=== PATIENT | male | born 1990 | race Caucasian/White ===

== ENCOUNTER 2017-03-15 04:25 | Emergency (ER) | payer BC ==
[~2017-03-15] VITALS: Ht 177.8 cm; Wt 89.1 kg
[2017-03-15 04:29] VITALS: TEMP 36.5; Ht 177.8 cm; Wt 89.1 kg
[2017-03-15] MEDS ORDERED: OXYCODONE IR HOME PACK PO ONE (04:30)
[2017-03-15] MEDS ORDERED: LIDOCAINE HCL 2% VISC SOLN 20 ML UDC PO STA (04:37)
[2017-03-15] MEDS ORDERED: SODIUM CHLORIDE 0.9% 1000ML 1,000 ML IV STA ×2 (04:37)
[2017-03-15] MEDS ORDERED: ALUMINUM/MAGNESIUM SUSP 30 ML UDC PO STA (04:37)
[2017-03-15] MEDS ORDERED: LORAZEPAM 2 MG/ML 1 ML VIAL IV STA (04:37)
[2017-03-15 05:27] LABS: BASO % 0.3 %; BASO ABS # 0.02 K/uL (0-0.2); COMPLETE YES; EOS % 1.7 %; HEMATOCRIT 45.3 % (42-52); IG% 0.1 %; LYMPH % 34.2 %; LYMPH ABS # 2.66 K/uL (1.2-3.4); MEAN CELL VOLUME 86.1 fL (80-100); MEAN PLATELET VOLUME 10.7 fL (7.4-10.4); MONO % 7.7 %; PLATELET COUNT 267 K/uL (130-400); RED BLOOD COUNT 5.26 M/uL (4.7-6.1); WHITE BLOOD COUNT 7.78 K/uL (4.8-10.8)
[2017-03-15 05:28] LABS: URINE APPEARANCE CLEAR (CLEAR); URINE BILIRUBIN NEG (NEG); URINE COLOR YELLOW; URINE NITRITE NEG (NEG); UROBILINOGEN NEG (NEG); ZZUR CULT IF INDIC CLEAN CATCH NO
[2017-03-15 05:42] LABS: MANUAL MICROSCOPIC REQUIRED? NO; REVIEW REQ? NO
[2017-03-15] MEDS ORDERED: CLON1TAB3 PO (05:42)
[2017-03-15] MEDS ORDERED: PROP1TAB PO (05:43)
[2017-03-15] MEDS ORDERED: PRT/20 PO (05:44)
[2017-03-15 05:53] LABS: BUN/CREATININE RATIO 8.3 (10-20); CALCIUM 9.6 mg/dl (8.5-10.1); CREATININE 1.3 mg/dl (0.60-1.40); POTASSIUM 3.8 mmol/L (3.5-5.1)
[2017-03-15] MEDS ORDERED: ONDANSETRON INJ 2 MG/ML 2 ML VIAL IV STA (06:13)
[2017-03-15] MEDS ORDERED: MoRPHine SULFATE 4 MG/ML 1 ML CARP\\VIAL IV STA (06:13)
[2017-03-15] MEDS ORDERED: PANTOprazole SOD 40 MG TAB PO STA (06:40)
[2017-03-15] MEDS ORDERED: PANT40TA PO (06:47)
[2017-03-15] MEDS ORDERED: SUCRALFATE 1 GM/10 ML UDC PO STA (06:59)
--- NOTE | 2017-03-15 07:18 | DIAGNOSTIC IMAGING REPORT ---
GALLBLADDER-ABD LIMITED CLINICAL HISTORY: 27 years-old Male presenting with epi pain, ? GB. TECHNIQUE: Real-time grayscale and limited color Doppler ultrasound imaging of the abdomen limited to the right upper quadrant was performed. COMPARISON: None. FINDINGS: Pancreas: Visualized portions of the pancreatic head and body normal. Liver: Mildly hyperechogenic parenchyma, although the right hemidiaphragm remains visible, likely indicating mild steatosis. The liver measures 16 cm in maximal sagittal dimension. No sonographic evidence of hepatic mass. Main portal vein patent with normal directional flow. Biliary: No intrahepatic biliary ductal dilatation. Common bile duct measures up to 4 mm in diameter. Gallbladder: Gallbladder sludge noted. No gallstones, wall thickening, pericholecystic fluid or inflammatory change. Right kidney: Normal in appearance and size, measuring 9.8 cm. No hydronephrosis. Ascites: None. IMPRESSION: 1. Gallbladder sludge. No evidence of cholelithiasis or cholecystitis. 2. Suggestion of hepatic steatosis. Electronically signed by: Surendra Kevin M.D. 03/15/2017 7:17 AM Dictated Date/Time: 03/15/2017 7:16 AM
--- NOTE | 2017-03-15 07:27 | EMERGENCY ROOM VISIT NOTE ---
History First contact with patient: 04:36 Chief Complaint: ABDOMINAL PAIN Stated Complaint: INTENSE UPR STOMACH PAIN,PANIC ATTACK SYMPTOMS Nursing Triage Summary: pt reports waking up and "i thought it was a panic attack but then i had this pain." pt c/o upper abdominal pain that radiates into his chest. pt's SO states pt has had panic attacks before "but never anything like this or that required medication." pt is pale and clammy, hyperventilating. pt has difficulty describing pain. denies urinary symptoms, denies diarrhea. states "if i had anything in my stomach to throw up i would." History of Present Illness The patient is a 27 year old male who presents to the Emergency Room with complaints of epigastric discomfort and feeling anxious for the past hour. Pain currently 5 out of 10. Nothing makes it better or worse. It does not radiate. No history of similar symptoms in the past. Patient suffers from anxiety. Patient has Klonopin and did not work so he came here. Patient also complains of left foot pain after injuring it a few days ago. Patient denies chest pain, dyspnea, fever, chills, back pain, vomiting, diarrhea, urinary symptoms. Review of Systems See HPI for pertinent positives & negatives. A total of 10 systems reviewed and were otherwise negative. Past Medical/Surgical History Panic Attacks Social History Smoking Status: Never Smoker Drug Use: none Marital Status: Housing Status: lives with family Occupation Status: employed Current/Historical Medications Scheduled Clonazepam (Klonopin), 1 MG PO BID Pantoprazole (Protonix), 20 MG PO DAILY Pantoprazole (Protonix), 40 MG PO DAILY Propranolol (Inderal), Unknown Dose PO DAILY Physical Exam Vital Signs Date Time Temp Pulse Resp B/P (MAP) Pulse Ox O2 Delivery O2 Flow Rate FiO2 03/15/17 07:10 66 14 96 03/15/17 07:05 88 14 142/89 99 03/15/17 07:01 142/89 03/15/17 07:00 60 20 100 03/15/17 06:30 53 20 130/86 100 Room Air 03/15/17 05:21 61 28 125/92 100 Room Air 03/15/17 05:20 Room Air 03/15/17 04:29 36.5 61 28 146/104 100 Room Air Physical Exam VITALS: Vitals are noted on the nurse's note and reviewed by myself. Vital signs stable. GENERAL: Pleasant male anxious-appearing, in no acute distress, nondiaphoretic, well-developed well-nourished. SKIN: The skin was without rashes, erythema, edema, or bruising. There is no tenting of the skin. Capillary reflex less than 2 seconds. HEAD: Normocephalic atraumatic. EARS: External auditory canals clear, tympanic membranes pearly calabrese without erythema or effusion bilaterally. EYES: Pupils equal round and reactive to light and accommodation. Conjunctivae without injection, sclerae without icterus. Extraocular movements intact. NOSE: Patent, turbinates without inflammation or discharge. MOUTH: Mucous membranes moist. Pharynx without erythema or exudate. Uvula midline. Airway patent. Tongue does not deviate. NECK: Supple without nuchal rigidity. No lymphadenopathy. No thyromegaly. Cervical spine is nontender. No JVD. HEART: Regular rate and rhythm without murmurs gallops or rubs. LUNGS: Clear to auscultation bilaterally without wheezes, rales or rhonchi. No dullness to percussion. No retractions or accessory muscle use. ABDOMEN: Positive bowel sounds x 4. Normal tympanic percussion. Soft, minimally tender epigastric region, no CVA tenderness, without masses or organomegaly. [place]o sign negative. No guarding or rebound tenderness. MUSCULOSKELETAL: No muscle atrophy, erythema, or edema noted. Left mid soldering machine tender to palpation with no deformity. No fifth metatarsal base tenderness. Left ankle is nontender to palpation. Pedal pulses +2 equal present bilaterally. NEURO: Patient was alert and oriented to person place and time. Normal sensation to light and sharp touch. No focal neurological deficits. Medical Decision & Procedures Laboratory Results 03/15/17 05:12 Red Blood Count 5.26, Mean Corpuscular Volume 86.1, Mean Corpuscular Hemoglobin 31.0, Mean Corpuscular Hemoglobin Concent 36.0, Mean Platelet Volume 10.7, Neutrophils (%) (Auto) 56.0, Lymphocytes (%) (Auto) 34.2, Monocytes (%) (Auto) 7.7, Eosinophils (%) (Auto) 1.7, Basophils (%) (Auto) 0.3, Neutrophils # (Auto) 4.36, Lymphocytes # (Auto) 2.66, Monocytes # (Auto) 0.60, Eosinophils # (Auto) 0.13, Basophils # (Auto) 0.02 03/15/17 05:12 Test 03/15/17 05:12 White Blood Count 7.78 K/uL (4.8-10.8) Red Blood Count 5.26 M/uL (4.7-6.1) Hemoglobin 16.3 g/dL (14.0-18.0) Hematocrit 45.3 % (42-52) Mean Corpuscular Volume 86.1 fL (80-100) Mean Corpuscular Hemoglobin 31.0 pg (25-34) Mean Corpuscular Hemoglobin Concent 36.0 g/dl (32-36) Platelet Count 267 K/uL (130-400) Mean Platelet Volume 10.7 fL (7.4-10.4) Neutrophils (%) (Auto) 56.0 % Lymphocytes (%) (Auto) 34.2 % Monocytes (%) (Auto) 7.7 % Eosinophils (%) (Auto) 1.7 % Basophils (%) (Auto) 0.3 % Neutrophils # (Auto) 4.36 K/uL (1.4-6.5) Lymphocytes # (Auto) 2.66 K/uL (1.2-3.4) Monocytes # (Auto) 0.60 K/uL (0.11-0.59) Eosinophils # (Auto) 0.13 K/uL (0-0.5) Basophils # (Auto) 0.02 K/uL (0-0.2) RDW Standard Deviation 40.3 fL (36.4-46.3) RDW Coefficient of Variation 12.7 % (11.5-14.5) Immature Granulocyte % (Auto) 0.1 % Immature Granulocyte # (Auto) 0.01 K/uL (0.00-0.02) Urine Color YELLOW Urine Appearance CLEAR (CLEAR) Urine pH 5.0 (4.5-7.5) Urine Specific [place] 1.020 (1.000-1.030) Urine Protein NEG (NEG) Urine Glucose (UA) NEG (NEG) Urine Ketones NEG (NEG) Urine Occult Blood NEG (NEG) Urine Nitrite NEG (NEG) Urine Bilirubin NEG (NEG) Urine Urobilinogen NEG (NEG) Urine Leukocyte Esterase NEG (NEG) Anion Gap 9.0 mmol/L (3-11) Est Creatinine Clear Calc Drug Dose 95.9 ml/min Estimated GFR () 86.7 Estimated GFR (Non- 74.8 BUN/Creatinine Ratio 8.3 (10-20) Calcium Level 9.6 mg/dl (8.5-10.1) Total Bilirubin 0.5 mg/dl (0.2-1) Direct Bilirubin 0.1 mg/dl (0-0.2) Aspartate Amino Transf (AST/SGOT) 11 U/L (15-37) Alanine Aminotransferase (ALT/SGPT) 40 U/L (12-78) Alkaline Phosphatase 76 U/L (45-117) Total Protein 8.1 gm/dl (6.4-8.2) Albumin 4.2 gm/dl (3.4-5.0) Lipase 194 U/L (73-393) Medications Administered Medications (Trade) Dose Ordered Sig/Vj Route Start Time Stop Time Status Last Admin Dose Admin Lidocaine HCl (Viscous Lidocaine 2% Soln) 10 ml NOW STAT PO 03/15/17 04:37 03/15/17 04:47 DC 03/15/17 05:34 10 ML Al Hydroxide/Mg Hydroxide (Maalox Susp) 30 ml NOW STAT PO 03/15/17 04:37 03/15/17 04:47 DC 03/15/17 05:34 30 ML Lorazepam (Ativan Inj) 1 mg NOW STAT IV 03/15/17 04:37 03/15/17 04:47 DC 03/15/17 05:14 1 MG Sodium Chloride 1,000 ml @ 999 mls/hr Q1H1M STAT IV 03/15/17 04:37 03/15/17 05:37 DC 03/15/17 05:14 999 MLS/HR Sodium Chloride 1,000 ml @ 125 mls/hr Q8H STAT IV 03/15/17 04:37 03/15/17 12:36 03/15/17 07:08 125 MLS/HR Morphine Sulfate (MoRPHine SULFATE INJ) 4 mg NOW STAT IV 03/15/17 06:13 03/15/17 06:15 DC 03/15/17 06:24 4 MG Ondansetron HCl (Zofran Inj) 4 mg NOW STAT IV 03/15/17 06:13 03/15/17 06:15 DC 03/15/17 06:23 4 MG Pantoprazole Sodium (Protonix Tab) 40 mg NOW STAT PO 03/15/17 06:40 03/15/17 06:41 DC 03/15/17 07:08 40 MG Sucralfate (Carafate Susp) 1 gm NOW STAT PO 03/15/17 06:59 03/15/17 07:00 DC 03/15/17 07:08 1 GM ED Course Prior records/ancillary studies reviewed. Triage Nursing notes reviewed. Additional history obtained from family. The patient's history was concerning for abdominal pain. Differential diagnosis: Etiologies such as appendicitis, diverticulitis, PUD, biliary pathology, UTI, pancreatitis, obstruction, mesenteric ischemia, aortic pathology, infections, inflammatory bowel disease, renal colic, as well as others were entertained. Physical examination findings: As above. ER treatment provided: GI cocktail On reassessment the patient felt better. Diagnostics interpreted by me: The labs revealed no leukocytosis. No worrisome electrolyte abnormality normal lipase Imaging studies: X-ray with no acute fracture, dislocation or effusion per my interpretation GALLBLADDER-ABD LIMITED CLINICAL HISTORY: 27 years-old Male presenting with epi pain, ? GB. TECHNIQUE: Real-time grayscale and limited color Doppler ultrasound imaging of the abdomen limited to the right upper quadrant was performed. COMPARISON: None. FINDINGS: Pancreas: Visualized portions of the pancreatic head and body normal. Liver: Mildly hyperechogenic parenchyma, although the right hemidiaphragm remains visible, likely indicating mild steatosis. The liver measures 16 cm in maximal sagittal dimension. No sonographic evidence of hepatic mass. Main portal vein patent with normal directional flow. Biliary: No intrahepatic biliary ductal dilatation. Common bile duct measures up to 4 mm in diameter. Gallbladder: Gallbladder sludge noted. No gallstones, wall thickening, pericholecystic fluid or inflammatory change. Right kidney: Normal in appearance and size, measuring 9.8 cm. No hydronephrosis. Ascites: None. IMPRESSION: 1. Gallbladder sludge. No evidence of cholelithiasis or cholecystitis. 2. Suggestion of hepatic steatosis. Electronically signed by: Surendra Kevin M.D. Exam and history seem consistent with epigastric discomfort most likely from gastritis. Patient felt much better after being medicated as above. He had injured his foot a few days ago and was complaining of foot pain and x-ray was ordered and this was negative also. He injured a few days ago. He was advised to take medications as started in the follow-up family care in a few days or here in the ER sooner for abdominal pain, fevers, vomiting, worsening signs or symptoms or as needed. Patient did not have acute abdomen on exam. He is well- appearing. He is tolerating fluids. By the evaluation outlined above emergent etiologies such as appendicitis, diverticulitis, PUD, biliary pathology, UTI, pancreatitis, obstruction, mesenteric ischemia, aortic pathology, infections, inflammatory bowel disease, renal colic, as well as others were deemed relatively unlikely. The pt informed about the findings as listed above. All questions were answered and pleased with the treatment. Return instructions were outlined and the patient was discharged in stable condition. Outpatient prescription management: Protonix Referral: The patient was referred back to their primary care physician for follow-up in 2 to 3 days for a recheck of the current condition. Case reviewed by attending Medical Decision as above Medication Reconcilliation Current Medication List: was personally reviewed by sc Blood Pressure Screening Patient's blood pressure: Normal blood pressure Impression Primary Impression: Epigastric abdominal pain Additional Impression: Left foot pain Departure Information Dispostion Home / Self-Care Condition GOOD Prescriptions Pantoprazole (Protonix) 40 Mg Tab 40 MG PO DAILY for 14 Days, #14 TAB Prov: Karla Condon ., BRIDGETT 03/15/17 Referrals Dagmar Correa D.ODavid (PCP) Patient Instructions My [facility] Additional Instructions Protonix 40 m tablet daily for next 2 weeks. Take this on an empty stomach. Try Maalox or Zantac for breakthrough symptoms for reflux. Avoid large meals. Avoid acidic foods. Rest and drink plenty of fluids as tolerated. Continue current medications. Avoid strenuous activities and anything that worsens your pain. Resume normal activities once your symptoms resolve. Return to the ER immediately for worsening or persistent chest pain, abdominal pain, black or blood in your stools, vomiting, fevers, chest pains, difficulty breathing, worsening of your condition, or as needed. Follow up with your primary physician in 2-3 days for a recheck of your current condition. Problem Qualifiers
--- NOTE | 2017-03-15 07:36 | DIAGNOSTIC IMAGING REPORT ---
LEFT FOOT MIN 3 VIEWS ROUTINE CLINICAL HISTORY: 27 years-old Male presenting with fall, left pain. TECHNIQUE: Frontal, oblique, and lateral views of the left foot were obtained. COMPARISON: None. FINDINGS: No acute fracture or subluxation. No radiopaque foreign body. Regional soft tissues within normal limits. IMPRESSION: No acute osseous injury of the left foot. Electronically signed by: Surendra Kevin M.D. 03/15/2017 7:34 AM Dictated Date/Time: 03/15/2017 7:34 AM
[2017-03-15 07:40] VITALS: BP 134/76; PULSE 66; O2SAT 96
[2017-03-22] MEDS ORDERED: OXYC-57 PO (09:42)
== END 2017-03-15 07:39 | disposition home or self-care (01) ==
LOC: C.EDB 04:27 → C.EDA 07:39
DX: R10.13 Epigastric pain (principal); M79.672 Pain in left foot; F41.0 Panic disorder [episodic paroxysmal anxiety]; Z79.899 Other long term (current) drug therapy

== ENCOUNTER 2017-03-17 05:54 | Emergency (ER) | payer BC ==
[~2017-03-17] VITALS: Ht 177.8 cm; Wt 87.4 kg
[~2017-03-17 05:54] MED LIST: CLON1TAB3 PO; PANT40TA PO; PROP1TAB PO; PRT/20 PO
[2017-03-17 06:03] VITALS: TEMP 36.3; Ht 177.8 cm; Wt 87.4 kg
[2017-03-17] MEDS ORDERED: PROP80CA PO (06:24)
[2017-03-17] MEDS ORDERED: CALC500C3 PO (06:24)
[2017-03-17] MEDS ORDERED: PANT40TA PO (06:24)
[2017-03-17 06:37] LABS: BASO % 0.3 %; BASO ABS # 0.02 K/uL (0-0.2); COMPLETE YES; EOS % 1.5 %; HEMATOCRIT 47.2 % (42-52); IG% 0.3 %; LYMPH % 36.8 %; LYMPH ABS # 2.53 K/uL (1.2-3.4); MEAN CELL VOLUME 87.4 fL (80-100); MEAN CORPUSCULAR HEMOGLOBIN 30.4 pg (25-34); MEAN CORPUSCULAR HGB CONC 34.7 g/dl (32-36); MEAN PLATELET VOLUME 10.8 fL (7.4-10.4); MONO % 6.7 %; NEUT % 54.4 %; PLATELET COUNT 260 K/uL (130-400); WHITE BLOOD COUNT 6.87 K/uL (4.8-10.8)
[2017-03-17] MEDS ORDERED: DICYCLOMINE HCL 20 MG TAB PO ONE (06:45)
[2017-03-17] MEDS ORDERED: DICYCLOMINE HCL 10 MG CAP ONE (06:49)
--- NOTE | 2017-03-17 06:50 | EMERGENCY ROOM VISIT NOTE ---
History Report prepared by [place]: Minerva Allison Under the Supervision of: Dr. Dominick Sandoval M.D. First contact with patient: 06:33 Chief Complaint: ABDOMINAL PAIN Stated Complaint: INTENSE ABDOMINAL PAIN,GASTRITIS Nursing Triage Summary: Diffuse abdominal pain, particularly on right side, "piercing" pain. Here two days ago, possible gastroenteritis. No diarrhea or vomiting. Pain severe at this time. Some lightheadedness and dizziness. History of Present Illness The patient is a 27 year old male who presents to the Emergency Room with complaints of intermittent abdominal pain that began several days ago. He currently rates his discomfort as a 9/10 in severity. The patient states that he was evaluated in the emergency department two days ago for similar pain. He notes that he was diagnosed with gastritis and started on Protonix. The patient states that he has been taking the medication. He states that the pain has been intermittent until 0430 this morning, when the pain became persistent. The patient reports normal bowel movements, denying any diarrhea or hematochezia. He denies any nausea or vomiting. The patient does report some lightheadedness and dizziness. He reports normal urination. Source of History: patient Onset: several days ago Position: abdomen Symptom Intensity: 9/10 Timing: intermittent Associated Symptoms: No nausea, No vomiting, No hematochezia, No diarrhea, No urinary symptoms Note: Associated Symptoms: lightheadedness and dizziness Review of Systems All systems have been listed, reviewed, and are negative other than those previously mentioned. Please see Additional Medical History Sheet. Past Medical & Surgical Surgical Problems: (1) Hx of tonsillectomy Family History Cancer Social History Smoking Status: Never Smoker Smokeless Tobacco Use: No Alcohol Use: occasionally Drug Use: none Marital Status: Housing Status: lives with family Occupation Status: employed Current/Historical Medications Scheduled Clonazepam (Klonopin), 1 MG PO BID Pantoprazole (Protonix), 40 MG PO DAILY Propranolol Hcl (Propranolol Hcl Er), 80 MG PO DAILY Scheduled PRN Calcium Carbonate (Tums), 1-2 TABS PO DIRECTED PRN for Indigestion Oxycodone/Acetaminophen 5MG/325MG (Percocet 5MG/325MG), 1-2 TABLETS PO Q4H PRN for Pain Allergies Coded Allergies: No Known Allergies (Unverified , 03/17/17) Physical Exam Vital Signs Date Time Temp Pulse Resp B/P (MAP) Pulse Ox O2 Delivery O2 Flow Rate FiO2 03/17/17 10:58 70 16 128/74 98 03/17/17 10:23 55 18 138/91 99 Room Air 03/17/17 08:28 66 16 129/91 98 Room Air 03/17/17 07:24 70 16 131/84 96 Room Air 03/17/17 06:03 36.3 54 20 147/102 Physical Exam GENERAL: Patient awake, alert, oriented x 3. Patient follows commands. Patient appears to be in marked distress. Patient is adequately hydrated and well-nourished. SKIN: Skin is pale and clammy. No erythema, cyanosis or rash HEENT: Normal head, pupils equal, reactive to light and accommodation. Oral cavity and posterior pharynx appear normal. Neck: Without adenopathy, no neck vein distention. LUNGS: Clear to auscultation. No wheezes, no rales, no rhonchi. HEART: No murmurs. No gallops. No rubs ABDOMEN: Generalized mid-epigastric tenderness, no rebound or guarding, no organomegaly. EXTREMITIES: No signs of trauma or infection NEUROLOGIC: Cranial nerves II-XII within normal limits. No gross motor sensory function deficits. Medical Decision & Procedures ER Provider Diagnostic Interpretation: CT results are interpretations by the radiologist and per my review. CT OF THE ABDOMEN AND PELVIS WITH CONTRAST CLINICAL HISTORY: Severe epigastric pain. COMPARISON STUDY: Right upper quadrant ultrasound March 15, 2017. TECHNIQUE: Following IV administration of 93 mL of Optiray-320, axial images of the abdomen and pelvis were obtained from the lung bases to the proximal femurs. Images were reviewed in the axial, sagittal, and coronal planes. IV contrast was administered without complication. A dose lowering technique was utilized adhering to the principles of ALARA. Oral contrast was administered. CT DOSE: 846.57 mGycm FINDINGS: Lung bases are clear. The liver, spleen, adrenal glands, kidneys and pancreas are normal. There is no biliary or pancreatic ductal dilatation. The gallbladder is mildly distended. There is mild pericholecystic infiltration. No peripancreatic infiltration is present. No pneumatosis, free air or portal venous gas is present. Caliber and wall thickness of small and large bowel are normal. The appendix is normal. No suspicious skeletal lesions are identified. IMPRESSION: Mild gallbladder distention and mild pericholecystic infiltration which raises the possibility of acute cholecystitis. A hepatobiliary scan could be obtained as indicated. Electronically signed by: Forrest Mora M.D. 03/17/2017 9:32 AM Dictated Date/Time: 03/17/2017 9:24 AM Laboratory Results 03/17/17 06:25 Red Blood Count 5.40, Mean Corpuscular Volume 87.4, Mean Corpuscular Hemoglobin 30.4, Mean Corpuscular Hemoglobin Concent 34.7, Mean Platelet Volume 10.8, Neutrophils (%) (Auto) 54.4, Lymphocytes (%) (Auto) 36.8, Monocytes (%) (Auto) 6.7, Eosinophils (%) (Auto) 1.5, Basophils (%) (Auto) 0.3, Neutrophils # (Auto) 3.74, Lymphocytes # (Auto) 2.53, Monocytes # (Auto) 0.46, Eosinophils # (Auto) 0.10, Basophils # (Auto) 0.02 03/17/17 06:25 Test 03/17/17 06:25 03/17/17 06:35 White Blood Count 6.87 K/uL (4.8-10.8) Red Blood Count 5.40 M/uL (4.7-6.1) Hemoglobin 16.4 g/dL (14.0-18.0) Hematocrit 47.2 % (42-52) Mean Corpuscular Volume 87.4 fL (80-100) Mean Corpuscular Hemoglobin 30.4 pg (25-34) Mean Corpuscular Hemoglobin Concent 34.7 g/dl (32-36) Platelet Count 260 K/uL (130-400) Mean Platelet Volume 10.8 fL (7.4-10.4) Neutrophils (%) (Auto) 54.4 % Lymphocytes (%) (Auto) 36.8 % Monocytes (%) (Auto) 6.7 % Eosinophils (%) (Auto) 1.5 % Basophils (%) (Auto) 0.3 % Neutrophils # (Auto) 3.74 K/uL (1.4-6.5) Lymphocytes # (Auto) 2.53 K/uL (1.2-3.4) Monocytes # (Auto) 0.46 K/uL (0.11-0.59) Eosinophils # (Auto) 0.10 K/uL (0-0.5) Basophils # (Auto) 0.02 K/uL (0-0.2) RDW Standard Deviation 40.8 fL (36.4-46.3) RDW Coefficient of Variation 12.7 % (11.5-14.5) Immature Granulocyte % (Auto) 0.3 % Immature Granulocyte # (Auto) 0.02 K/uL (0.00-0.02) Anion Gap 9.0 mmol/L (3-11) Est Creatinine Clear Calc Drug Dose 104.2 ml/min Estimated GFR () 106.1 Estimated GFR (Non- 91.5 BUN/Creatinine Ratio 13.8 (10-20) Calcium Level 10.2 mg/dl (8.5-10.1) Total Bilirubin 0.5 mg/dl (0.2-1) Aspartate Amino Transf (AST/SGOT) 27 U/L (15-37) Alanine Aminotransferase (ALT/SGPT) 45 U/L (12-78) Alkaline Phosphatase 78 U/L (45-117) Total Protein 8.4 gm/dl (6.4-8.2) Albumin 4.2 gm/dl (3.4-5.0) Globulin 4.2 gm/dl (2.5-4.0) Albumin/Globulin Ratio 1.0 (0.9-2) Lipase 181 U/L (73-393) Urine Color DK YELLOW Urine Appearance CLEAR (CLEAR) Urine pH 6.5 (4.5-7.5) Urine Specific [place] 1.028 (1.000-1.030) Urine Protein NEG (NEG) Urine Glucose (UA) NEG (NEG) Urine Ketones 1+ (NEG) Urine Occult Blood NEG (NEG) Urine Nitrite NEG (NEG) Urine Bilirubin NEG (NEG) Urine Urobilinogen NEG (NEG) Urine Leukocyte Esterase TRACE (NEG) Urine WBC (Auto) 1-5 /hpf (0-5) Urine RBC (Auto) 0-4 /hpf (0-4) Urine Hyaline Casts (Auto) 1-5 /lpf (0-5) Urine Epithelial Cells (Auto) 5-10 /lpf (0-5) Urine Bacteria (Auto) NEG (NEG) Laboratory results as stated above per my review. Medications Administered Medications (Trade) Dose Ordered Sig/Vj Route Start Time Stop Time Status Last Admin Dose Admin Dicyclomine HCl (Bentyl Cap) 20 mg STK-MED ONCE .ROUTE 03/17/17 06:49 03/17/17 06:50 DC 03/17/17 06:52 20 MG Morphine Sulfate (MoRPHine SULFATE INJ) 6 mg Q1H PRN IV 03/17/17 07:30 03/17/17 11:15 DC 03/17/17 08:27 6 MG Ondansetron HCl (Zofran Inj) 4 mg Q1HWA PRN IV 03/17/17 07:30 03/17/17 11:15 DC 03/17/17 07:21 4 MG ED Course 0634: Past medical records reviewed. The patient was evaluated in room B9. A complete history and physical examination was performed. 0649: Ordered Bentyl Cap 20 mg .route. 0730: Ordered Zofran Inj 4 mg iV, Morphine Sulfate 6 mg IV. 0904: I reevaluated the patient and he feels slightly better. 1011: I reevaluated the patient and he is feeling better. I explained the test results with him and the option of a hepatobiliary scan. He verbalized complete understanding and agreement. He will be set up for a hepatobiliary scan. The patient will be discharged home shortly. 1025: I discussed the patient's case with the Dr. Correa, Family Medicine. She is going to order the hepatobiliary scan and the patient will have the scan tomorrow at 1230. Medical Decision Nurses notes reviewed. Medical history sheet reviewed. Differential diagnosis includes but is not limited to: Gastritis, peptic/gastric ulcer disease, pancreatitis, cholecystis, cholelithiasis, ulcerative colitis, Crohns disease, mesenteric infarction. Labs and imaging were performed. Please see above. CT is concerning for possible cholecystitis. White count is not elevated. Liver enzymes are within normal range. I believe the patient should have a HIDA scan which could not be completed today. This will be done as an outpatient. Patient did get relief while here. He is also to follow-up with his family physician. [place] Drug Monitoring [place] Search Results: patient reviewed within database, see additional documentation Drug Monitoring Findings: Receives Clonazepam, but no other narcotic prescriptions Medication Reconcilliation Current Medication List: was personally reviewed by me Blood Pressure Screening Patient's blood pressure: Elevated blood pressure Blood pressure disposition: Elevated BP felt to be situational, Did not require urgent referral Consults Time Called: 1000 Consulting Physician: Dr. Correa Returned Call: [phone] I discussed the patient's case with the Dr. Correa, Family Medicine. She is going to order the hepatobiliary scan and the patient will have the scan tomorrow at 1230. Impression Primary Impression: Right upper quadrant abdominal pain Scribe Attestation The scribe's documentation has been prepared under my direction and personally reviewed by me in its entirety. I confirm that the note above accurately reflects all work, treatment, procedures, and medical decision making performed by me. Departure Information Dispostion Home / Self-Care Prescriptions Oxycodone/Acetaminophen 5MG/325MG (PERCOCET 5MG/325MG) Tab 1-2 TABLETS PO Q4H Y for Pain, #20 TAB Prov: Dominick Sandoval M.D. 03/17/17 Referrals Dagmar Correa D.O. (PCP) Forms HOME CARE DOCUMENTATION FORM, IMPORTANT VISIT INFORMATION Patient Instructions ED Diet Low Fat, [facility] [place] [employer] Additional Instructions 1-2 Percocet every 4 hours as needed for moderate to severe pain. HIDA scan as scheduled tomorrow. Call Dr. Howard for exact time. Nothing by mouth and no pain medications for at least 4 hours prior to the study. Avoid fatty or fried foods.
[2017-03-17 07:02] LABS: CREATININE 1.1 mg/dl (0.60-1.40)
[2017-03-17 07:06] LABS: POTASSIUM 4.1 mmol/L (3.5-5.1)
[2017-03-17 07:08] LABS: BUN/CREATININE RATIO 13.8 (10-20); CALCIUM 10.2 mg/dl (8.5-10.1)
[2017-03-17 07:08] LABS: URINE APPEARANCE CLEAR (CLEAR); URINE BILIRUBIN NEG (NEG); URINE COLOR DK YELLOW; URINE NITRITE NEG (NEG); URINE PH 6.5 (4.5-7.5); URINE SPECIFIC GRAVITY 1.028 (1.000-1.030); UROBILINOGEN NEG (NEG); ZZUR CULT IF INDIC CLEAN CATCH NO
[2017-03-17 07:15] LABS: MANUAL MICROSCOPIC REQUIRED? NO; REVIEW REQ? NO
[2017-03-17] MEDS: MoRPHine SULFATE 10 MG/ML CARP/VIAL IV PRN ×2 (07:22→08:27)
[2017-03-17] MEDS ORDERED: ONDANSETRON INJ 2 MG/ML 2 ML VIAL IV PRN (07:30)
[2017-03-17] MEDS ORDERED: OPTIRAY 320 IV PRN (09:30)
--- NOTE | 2017-03-17 09:33 | DIAGNOSTIC IMAGING REPORT ---
CT OF THE ABDOMEN AND PELVIS WITH CONTRAST CLINICAL HISTORY: Severe epigastric pain. COMPARISON STUDY: Right upper quadrant ultrasound March 15, 2017. TECHNIQUE: Following IV administration of 93 mL of Optiray-320, axial images of the abdomen and pelvis were obtained from the lung bases to the proximal femurs. Images were reviewed in the axial, sagittal, and coronal planes. IV contrast was administered without complication. A dose lowering technique was utilized adhering to the principles of ALARA. Oral contrast was administered. CT DOSE: 846.57 mGycm FINDINGS: Lung bases are clear. The liver, spleen, adrenal glands, kidneys and pancreas are normal. There is no biliary or pancreatic ductal dilatation. The gallbladder is mildly distended. There is mild pericholecystic infiltration. No peripancreatic infiltration is present. No pneumatosis, free air or portal venous gas is present. Caliber and wall thickness of small and large bowel are normal. The appendix is normal. No suspicious skeletal lesions are identified. IMPRESSION: Mild gallbladder distention and mild pericholecystic infiltration which raises the possibility of acute cholecystitis. A hepatobiliary scan could be obtained as indicated. Electronically signed by: Forrest Mora M.D. 03/17/2017 9:32 AM Dictated Date/Time: 03/17/2017 9:24 AM
[2017-03-17] MEDS ORDERED: OXYC-57 PO (10:38)
[2017-03-17 10:58] VITALS: BP 128/74; PULSE 70; O2SAT 98
[2017-03-22] MEDS ORDERED: OXYC-57 PO (09:42)
== END 2017-03-17 10:59 | disposition home or self-care (01) ==
LOC: C.EDB 05:56
DX: R10.11 Right upper quadrant pain (principal); Z80.9 Family history of malignant neoplasm, unspecified; Z79.899 Other long term (current) drug therapy

== ENCOUNTER → 2017-03-18 | Outpatient (CLI) | payer BC ==
[~2017-03-18] MED LIST changes: +CALC500C3 PO; +MoRPHine SULFATE 2 MG/ML CARP ONE; +OXYC-57 PO; -PROP1TAB PO; +PROP80CA PO; -PRT/20 PO; +SINCALIDE INJ 1.7 MCG in SODIUM CHLORIDE 0.9% 100ML 100 ML IV ONE
--- NOTE | 2017-03-18 14:46 | DIAGNOSTIC IMAGING REPORT ---
NUCLEAR HEPATOBILIARY SCAN CLINICAL HISTORY: Right upper quadrant abdominal pain. COMPARISON STUDY: Abdominal CT dated 03/17/2017 and abdominal ultrasound dated 03/15/2017. TECHNIQUE: Dynamic images of the liver and anterior abdomen were obtained every 5 minutes for a total of 60 minutes following the IV administration of 5 mCi of technetium 99m Choletec. The gallbladder was not visualized by 60 minutes, so 2 mg of IV morphine was administered and additional imaging performed every 5 minutes for an additional 30 minutes. FINDINGS: The hepatobiliary scan shows prompt and homogeneous hepatic uptake. There is visualized activity within the intra and extrahepatic biliary tree at 10 minutes. There is normal biliary to bowel transit, with small bowel visualized by 10 minutes. There was nonvisualization of the gallbladder at 60 minutes. The gallbladder was also not visualized 30 minutes following morphine administration. IMPRESSION: Scintigraphic findings are consistent with acute cholecystitis. Surgical consultation is advised. Electronically signed by: Khris Michael M.D. 03/18/2017 2:45 PM Dictated Date/Time: 03/18/2017 2:41 PM
== END | disposition home or self-care (01) ==
LOC: C.NUCL 12:07
PROVIDERS: ATTEND Family Medicine
DX: R10.11 Right upper quadrant pain (principal)

== ENCOUNTER 2017-03-20 09:06 | Inpatient (IN) | payer BC ==
[~2017-03-20] VITALS: Ht 177.8 cm; Wt 84.0 kg
[~2017-03-20 09:06] MED LIST changes: -MoRPHine SULFATE 2 MG/ML CARP ONE; -SINCALIDE INJ 1.7 MCG in SODIUM CHLORIDE 0.9% 100ML 100 ML IV ONE
[2017-03-20 10:41] VITALS: BP 129/94; PULSE 90; TEMP 36.7; O2SAT 99
[2017-03-20 10:52] VITALS: Ht 177.8 cm; Wt 84.0 kg
[2017-03-20] MEDS ORDERED: ACETAMINOPHEN 325 MG TAB PO PRN (11:00)
[2017-03-20 11:39] LABS: BASO % 0.4 %; BASO ABS # 0.03 K/uL (0-0.2); EOS % 2.4 %; HEMATOCRIT 49.9 % (42-52); IG% 0.4 %; LYMPH % 21.1 %; LYMPH ABS # 1.52 K/uL (1.2-3.4); MEAN CELL VOLUME 88.6 fL (80-100); MEAN CORPUSCULAR HEMOGLOBIN 29.8 pg (25-34); MEAN PLATELET VOLUME 10.8 fL (7.4-10.4); MONO % 7.1 %; NEUT % 68.6 %; PLATELET COUNT 272 K/uL (130-400); RED BLOOD COUNT 5.63 M/uL (4.7-6.1); WHITE BLOOD COUNT 7.21 K/uL (4.8-10.8)
[2017-03-20 11:53] LABS: COMPLETE YES; MEAN CORPUSCULAR HGB CONC 33.7 g/dl (32-36)
[2017-03-20 12:08] LABS: BUN/CREATININE RATIO 12.4 (10-20); CALCIUM 10.2 mg/dl (8.5-10.1); CREATININE 1.1 mg/dl (0.60-1.40); POTASSIUM 4.3 mmol/L (3.5-5.1)
[2017-03-20 12:10] LABS: ALB/GLOB RATIO 0.8 (0.9-2)
[2017-03-20] MEDS: LACTATED RINGER'S 1000ML 1,000 ML IV SCH ×2 (12:17→19:05)
[2017-03-20] MEDS: OXYCODONE/ACETAMINOPHEN 5-325 TAB PO PRN ×2 (12:21→19:06)
[2017-03-20] MEDS: CEFOXITIN IV 2,000 MG in DEXTROSE 5% 50ML 50 ML IV SCH ×2 (13:23→17:38)
[2017-03-20] MEDS: ONDANSETRON INJ 2 MG/ML 2 ML VIAL IV PRN ×2 (13:28→20:47)
[2017-03-20] MEDS: FAMOTIDINE IV INJ 20 MG in DEXTROSE 5% 100ML 100 ML IV SCH (14:11)
[2017-03-20 15:34] VITALS: BP 113/76; PULSE 66; TEMP 36.5; O2SAT 94
[2017-03-20 23:18] VITALS: BP 109/69; PULSE 66; TEMP 36.5; O2SAT 94
[2017-03-21] VITALS (8 sets, daily range): BP systolic 107–128; BP diastolic 65–78; PULSE 62–103; TEMP 36.3–36.8; O2SAT 93–98
[2017-03-21] MEDS: CEFOXITIN IV 2,000 MG in DEXTROSE 5% 50ML 50 ML IV SCH ×4 (00:48→18:33)
[2017-03-21] MEDS: MoRPHine SULFATE 2 MG/ML CARP IV PRN ×2 (01:47→10:19)
[2017-03-21] MEDS: FAMOTIDINE IV INJ 20 MG in DEXTROSE 5% 100ML 100 ML IV SCH ×2 (01:47→13:40)
[2017-03-21] MEDS: ONDANSETRON INJ 2 MG/ML 2 ML VIAL IV PRN ×3 (03:09→16:18)
[2017-03-21] MEDS: MoRPHine SULFATE 4 MG/ML 1 ML CARP\\VIAL IV PRN ×2 (03:09→12:20)
[2017-03-21] MEDS: LACTATED RINGER'S 1000ML 1,000 ML IV SCH ×3 (03:17→18:34)
[2017-03-21] MEDS ORDERED: CEFAZOLIN 2000 MG/60 ML D5W IV SCH (06:00)
[2017-03-21] MEDS ORDERED: CEFAZOLIN IV 2,000 MG in DEXTROSE 5% 50ML 50 ML IV SCH (06:00)
[2017-03-21] MEDS ORDERED: BUPIVACAINE/EPINEPHRINE 0.5% MPF 1:200,000 30 ML VIAL ONE (06:58)
[2017-03-21] MEDS ORDERED: DEXAMETHASONE SOD INJ 4 MG/ML VIAL ONE (07:07)
[2017-03-21] MEDS ORDERED: PROPOFOL IV EMULSION 10 MG/ML 20 ML VIAL IV ONE (07:07)
[2017-03-21] MEDS ORDERED: ONDANSETRON INJ 2 MG/ML 2 ML VIAL ONE (07:07)
[2017-03-21] MEDS ORDERED: ROCURONIUM BROMIDE 10 MG/ML 5 ML VIAL IV ONE (07:07)
[2017-03-21] MEDS ORDERED: GLYCOPYRROLATE INJ 0.2 MG/ML VIAL ONE (07:07)
[2017-03-21] MEDS ORDERED: NEOSTIGMINE METHYLSULFATE 5 MG/5 ML SYR ONE (07:07)
[2017-03-21] MEDS ORDERED: LIDOCAINE HCL 2% 2 ML VIAL (20MG/ML) ONE (07:07)
[2017-03-21] MEDS ORDERED: FENTANYL CITRATE INJ 50 MCG/1 ML 2 ML VIAL ONE ×3 (07:08→08:25)
[2017-03-21] MEDS ORDERED: MIDAZOLAM HCL 1 MG/ML 2ML VIAL ONE (07:08)
--- NOTE | 2017-03-21 07:10 | Surgery Progress Note ---
Surgery Progress Note Date of Service Mar 21, 2017. Subjective Post OP Day: HD 2 + feeling well (better), + flatus, + pain controlled, + diet (NPO), No nausea, No vomiting Objective Vital Signs: Date Time Temp Pulse Resp B/P (MAP) Pulse Ox O2 Delivery O2 Flow Rate FiO2 03/21/17 06:43 36.5 67 18 119/72 (88) 97 Room Air 03/21/17 00:30 Room Air 03/20/17 23:18 36.5 66 18 109/69 (82) 94 Room Air 03/20/17 16:00 Room Air 03/20/17 15:34 36.5 66 16 113/76 (88) 94 Room Air 03/20/17 12:00 Room Air 03/20/17 10:52 Room Air 03/20/17 10:41 36.7 90 16 129/94 (106) 99 Room Air General Appearance: WD/WN, no apparent distress Head: normocephalic, atraumatic Neck: supple, trachea midline Respiratory/Chest: chest non-tender, lungs clear Cardiovascular: regular rate, rhythm, no gallop, no murmur Abdomen: normal bowel sounds, non distended, soft, + tenderness (RUQ) Extremities: non-tender, no pedal edema Laboratory Results: Results Past 24 Hours Test 03/20/17 11:30 Range/Units White Blood Count 7.21 4.8-10.8 K/uL Red Blood Count 5.63 4.7-6.1 M/uL Hemoglobin 16.8 14.0-18.0 g/dL Hematocrit 49.9 42-52 % Mean Corpuscular Volume 88.6 80-100 fL Mean Corpuscular Hemoglobin 29.8 25-34 pg Mean Corpuscular Hemoglobin Concent 33.7 32-36 g/dl Platelet Count 272 130-400 K/uL Mean Platelet Volume 10.8 7.4-10.4 fL Neutrophils (%) (Auto) 68.6 % Lymphocytes (%) (Auto) 21.1 % Monocytes (%) (Auto) 7.1 % Eosinophils (%) (Auto) 2.4 % Basophils (%) (Auto) 0.4 % Neutrophils # (Auto) 4.95 1.4-6.5 K/uL Lymphocytes # (Auto) 1.52 1.2-3.4 K/uL Monocytes # (Auto) 0.51 0.11-0.59 K/uL Eosinophils # (Auto) 0.17 0-0.5 K/uL Basophils # (Auto) 0.03 0-0.2 K/uL RDW Standard Deviation 40.8 36.4-46.3 fL RDW Coefficient of Variation 12.7 11.5-14.5 % Immature Granulocyte % (Auto) 0.4 % Immature Granulocyte # (Auto) 0.03 0.00-0.02 K/uL Sodium Level 137 136-145 mmol/L Potassium Level 4.3 3.5-5.1 mmol/L Chloride Level 102 98-107 mmol/L Carbon Dioxide Level 29 21-32 mmol/L Anion Gap 6.0 3-11 mmol/L Blood Urea Nitrogen 14 7-18 mg/dl Creatinine 1.10 0.60-1.40 mg/dl Est Creatinine Clear Calc Drug Dose 104.2 ml/min Estimated GFR () 106.1 Estimated GFR (Non- 91.5 BUN/Creatinine Ratio 12.4 10-20 Random Glucose 83 70-99 mg/dl Calcium Level 10.2 8.5-10.1 mg/dl Total Bilirubin 0.7 0.2-1 mg/dl Aspartate Amino Transf (AST/SGOT) 89 15-37 U/L Alanine Aminotransferase (ALT/SGPT) 242 12-78 U/L Alkaline Phosphatase 170 45-117 U/L Total Protein 9.1 6.4-8.2 gm/dl Albumin 4.1 3.4-5.0 gm/dl Globulin 5.0 2.5-4.0 gm/dl Albumin/Globulin Ratio 0.8 0.9-2 Assessment & Plan Acute cholecystitis -IV mefoxin -IVF -to OR for lap steph with acute cholecystitis
[2017-03-21] MEDS ORDERED: ONDANSETRON INJ 2 MG/ML 2 ML VIAL IV PRN (07:30)
[2017-03-21] MEDS ORDERED: HYDROmorphone INJ 2 MG/ML SYR/VIAL IV PRN (07:30)
[2017-03-21] MEDS ORDERED: PHENYLEPHRINE 100MCG/ML 5ML SYR IV PRN (07:30)
[2017-03-21] MEDS ORDERED: EpHEDrine SULFATE INJ 50 MG/ML AMP IV PRN (07:30)
[2017-03-21] MEDS ORDERED: ATROPINE SULFATE 0.1 MG/ML 5ML SYR IV PRN (07:30)
[2017-03-21] MEDS ORDERED: ESMOLOL HCL 10 MG/ML 10 ML VIAL ONE (08:01)
[2017-03-21] MEDS ORDERED: KETOROLAC TROMETHAMINE 30 MG/ML VIAL ONE (08:07)
--- NOTE | 2017-03-21 08:19 | [facility] Post Operative Brief Note ---
Immediate Operative Summary Operative Date Mar 21, 2017. Pre-Operative Diagnosis Acute Cholecystitis Post-Operative Diagnosis Acute Cholecystitis Procedure(s) Performed Laparoscopic Cholecystectomy Surgeon Dr. [employer] Consultant Surgeon(s) none Estimated Blood Loss 50 cc Findings acute cholecystitis Specimens A: gallbladder and contents Drains none Anesthesia GETA w/marcaine Complication(s) None Disposition Recovery Room / PACU
[2017-03-21] MEDS ORDERED: HYDROmorphone INJ 2 MG/ML SYR/VIAL ONE (08:35)
--- NOTE | 2017-03-21 08:43 | OPERATIVE REPORT ---
DATE OF OPERATION: 03/21/2017 PREOPERATIVE DIAGNOSIS: Acute cholecystitis. POSTOPERATIVE DIAGNOSIS: Same. PROCEDURE PERFORMED: Laparoscopic cholecystectomy. SURGEON: Dr. Abdirashid Sapp. FOREIGN LEGAL CONSULTANT: None. ANESTHESIA: General endotracheal with 0.5% Marcaine with epinephrine local. ESTIMATED BLOOD LOSS: 50 mL. COMPLICATIONS: None. DRAINS: None. SPECIMENS: Gallbladder sent to pathology. INDICATION FOR PROCEDURE: This is a 27-year-old male who came in to the office yesterday with an outpatient workup showing acute cholecystitis. He was tender on exam, was not tolerating diet and therefore, was admitted and will be taken to the OR for laparoscopic cholecystectomy. We talked about the risks including open procedure, common duct injury, retained common bile duct stone, postop bile leak, bleeding and wound problems. He understands this and wishes to proceed. DESCRIPTION OF PROCEDURE: The patient was taken to the OR and underwent excellent general endotracheal anesthesia. His abdomen was prepped and draped in normal sterile fashion. A transverse supraumbilical incision was made and dissection was taken down to identify his anterior fascia. Two Vicryls were placed in either side of midline. The midline was incised sharply. A Paris clamp was used to enter the peritoneal cavity. Sue trocar was then inserted. Good pneumoperitoneum achieved to 15 mmHg pressure. The patient was placed in head up and rolled to the left. He had an obviously inflamed gallbladder. The gallbladder was grasped and the yan were friable and small hole was made within this, but the grasper was able to maintain in the fundus, which was retracted superiorly. The neck was then grasped and some dense inflamed adhesions were taken down. The cystic duct and cystic artery were identified and skeletonized. A medial and lateral window was created between the gallbladder and gallbladder fossa, showing a portion of the cystic plate and therefore, giving us a critical view. Once this was done, 3 clips were placed distally on the cystic duct and 1 proximally and the cystic duct was transected. Two clips were placed proximally in the cystic artery and 1 distally on the cystic artery and cystic artery was transected. Electrocautery hook was then used to remove the gallbladder from gallbladder fossa. There was probably about 50 mL of blood loss with the friability of the tissue and some small bleeders on the gallbladder fossa. These were cauterized. The abdomen was then irrigated out and suctioned clear. The gallbladder fossa was checked once again. There was no active bleeding. The clips were well placed in the duct and artery. The ports were then removed. Pneumoperitoneum was decompressed. 0 Vicryl was used to close the fascial defect. Interrupted Vicryl was used to close the subcutaneous. Interrupted Vicryl was used to close the skin. Steri-Strips and benzoin were used for reinforce the incision. Sterile dressings were applied. A field block was created with lidocaine prior to closure. He tolerated the procedure well without any complications, was sent to post-recovery for a period of observation and will be discharged to his room once he meets criteria. I attest to the content of the Intraoperative Record and any orders documented therein. Any exception s are noted below.
--- NOTE | 2017-03-21 08:50 | Anesthesiology Progress Note ---
Anesthesia Post Op Note Date & Time Mar 21, 2017 at 08:50 Vital Signs Pain Intensity: 8 Vital Signs Past 12 Hours Date Time Temp Pulse Resp B/P (MAP) Pulse Ox O2 Delivery O2 Flow Rate FiO2 03/21/17 08:45 56 12 131/93 100 Oxymask 10 03/21/17 08:35 55 16 144/96 100 Oxymask 10 03/21/17 08:29 36.8 60 16 165/95 100 Oxymask 10 03/21/17 06:43 36.5 67 18 119/72 (88) 97 Room Air 03/21/17 00:30 Room Air 03/20/17 23:18 36.5 66 18 109/69 (82) 94 Room Air Notes Mental Status: alert / awake / arousable, participated in evaluation Pt Amnestic to Procedure: Yes Nausea / Vomiting: adequately controlled Pain: adequately controlled Airway Patency, RR, SpO2: stable & adequate BP & HR: stable & adequate Hydration State: stable & adequate Anesthetic Complications: no major complications apparent
[2017-03-21] MEDS: OXYCODONE/ACETAMINOPHEN 5-325 TAB PO PRN ×2 (16:16→20:22)
[2017-03-22] MEDS: CEFOXITIN IV 2,000 MG in DEXTROSE 5% 50ML 50 ML IV SCH ×2 (00:22→06:06)
[2017-03-22] MEDS: FAMOTIDINE IV INJ 20 MG in DEXTROSE 5% 100ML 100 ML IV SCH (03:00)
[2017-03-22] MEDS: LACTATED RINGER'S 1000ML 1,000 ML IV SCH (03:01)
[2017-03-22 03:03] VITALS: BP 126/73; PULSE 78; TEMP 36.7; O2SAT 96
[2017-03-22] MEDS: OXYCODONE/ACETAMINOPHEN 5-325 TAB PO PRN ×2 (03:48→09:14)
[2017-03-22] MEDS ORDERED: NURSING VERBAL MED ORDER ONE (04:00)
[2017-03-22] MEDS ORDERED: PROPRANOLOL HCL 80 MG LA CAP PO STA (04:05)
[2017-03-22 07:36] VITALS: BP 100/67; PULSE 58; TEMP 36.6; O2SAT 97
[2017-03-22] MEDS ORDERED: CLONAZEPAM 1 MG TAB PO SCH (09:00)
--- NOTE | 2017-03-22 09:41 | Surgery Progress Note ---
Surgery Progress Note Date of Service Mar 22, 2017. Subjective Post OP Day: 1 + feeling well, + ambulating, + flatus, + pain controlled, + diet, No nausea, No vomiting Objective Vital Signs: Date Time Temp Pulse Resp B/P (MAP) Pulse Ox O2 Delivery O2 Flow Rate FiO2 03/22/17 07:36 36.6 58 21 100/67 (78) 97 Room Air 03/22/17 03:03 36.7 78 16 126/73 (90) 96 Room Air 03/22/17 00:15 Room Air 03/21/17 22:48 36.8 79 17 107/65 (79) 95 Room Air 03/21/17 19:11 36.6 103 18 110/66 (81) 94 Room Air 03/21/17 16:15 Room Air 03/21/17 16:10 36.6 92 18 116/70 (85) 97 Room Air 03/21/17 12:40 36.8 87 15 128/78 (95) 98 Room Air 03/21/17 11:40 36.7 90 16 108/66 (80) 94 Room Air 03/21/17 10:40 36.5 74 16 115/70 (85) 93 Room Air 03/21/17 09:40 36.3 62 18 116/74 (88) 98 Nasal Cannula 2.0 03/21/17 09:40 98 Nasal Cannula 2.0 03/21/17 09:40 98 Nasal Cannula 2.0 General Appearance: WD/WN, no apparent distress Head: normocephalic, atraumatic Neck: supple, trachea midline Respiratory/Chest: lungs clear Cardiovascular: regular rate, rhythm Abdomen: normal bowel sounds, non distended, soft, + tenderness Incision(s): clean, dry, findings (some drainage) Extremities: non-tender, no pedal edema Assessment & Plan Acute cholecystitis -s/p lap steph -doing well -discharge today
[2017-03-22] MEDS ORDERED: OXYC-57 PO (09:42)
--- NOTE | 2017-03-22 09:45 | Discharge Instructions ---
Discharge Instructions Date of Service Mar 22, 2017. Admission Reason for Admission: Cholecystitis Discharge Discharge Diagnosis / Problem: acute cholecystitis Discharge Goals Goal(s): Therapeutic intervention Activity Recommendations Activity Limitations: per Instructions/Follow-up section Lifting Limitations: no more than 25 pounds Exercise/Sports Limitations: gradually increase as tolerated May Resume Sexual Activity: when tolerated Shower/Bathe: no limitations Driving or Machine Use: resume 3 days after discharge (as long as not taking narcotics) -no strenuous activity for 3 weeks . Instructions / Follow-Up Instructions / Follow-Up [place]; 2 weeks; [id number] Current Hospital Diet Patient's current hospital diet: Regular Diet Discharge Diet Recommended Diet: Regular Diet Procedures Procedures Performed: Laparoscopic Cholecystectomy Pending Studies Studies pending at discharge: no Work Instructions Return To Work: after follow-up Lifting Limitations: no more than 20 pounds Additional Instructions: -return on light duty as tolerated prior to clinic visit Medical Emergencies . Who to Call and When: Medical Emergencies: If at any time you feel your situation is an emergency, please call 911 immediately. . Non-Emergent Contact Non-Emergency issues call your: Primary Care Provider, Surgeon Call Non-Emergent contact if: temperature is above 101.5, your pain is not controlled, your pain is worsening, your pain is unusual for you, your pain is concerning you, wound has increased redness, wound has increased pain . "Provider Documentation" section prepared by Abdirashid Sapp. . VTE Core Measure Inpt VTE Proph given/why not?: SCD's [place] Drug Monitoring Program Search Results: patient reviewed within database
[2017-03-22 10:06] VITALS: BP 100/67; PULSE 58; TEMP 36.6; O2SAT 97
--- NOTE | 2017-03-22 12:40 | DISCHARGE SUMMARY ---
DIAGNOSES: 1. Acute cholecystitis. 2. Anxiety. 3. Reflux. ATTENDING PHYSICIAN: Dr. Abdirashid Sapp. PROCEDURES PERFORMED: Laparoscopic cholecystectomy on 03/21/2017. HISTORY OF PRESENT ILLNESS: This is a 27-year-old male who was admitted from Dr. Teran's clinic with an obvious acute cholecystitis. He had a HIDA scan which showed nonfilling of the gallbladder. He was therefore admitted, placed on IV antibiotics, and then taken to the OR for laparoscopic cholecystectomy. HOSPITAL COURSE: The patient was admitted, placed on IV fluids, IV antibiotics, taken to the OR on hospital day #2. He underwent an uncomplicated laparoscopic cholecystectomy for an acute cholecystitis. He did well postoperatively with his diet and activity and pain control. He was ready for discharge on postoperative day #1. DISCHARGE MEDICATIONS: Percocet 1 tablet p.o. q. 6 hours p.r.n. pain, Tums 1-2 tablets p.o. as needed, Klonopin 1 mg p.o. b.i.d., Protonix 40 mg p.o. daily, and propranolol 80 mg p.o. daily. DIET: Regular as tolerated. ACTIVITIES: No strenuous activity for 3 weeks. DISCHARGE INSTRUCTIONS: Follow up [address] Sapp's office.
[2017-03-23] MEDS ORDERED: PROPRANOLOL HCL 80 MG LA CAP PO SCH (09:00)
== END 2017-03-22 11:35 | disposition home or self-care (01) | DRG 419 ==
LOC: C.MSN 10:14
PROVIDERS: ADMIT Surgery; ATTEND Surgery
PROC: 0FT44ZZ Resection of Gallbladder, Percutaneous Endoscopic Approach (ICD-10-PCS; principal; 2017-03-21 07:30)
DX: K81.0 Acute cholecystitis (principal); F41.9 Anxiety disorder, unspecified; K21.9 Gastro-esophageal reflux disease without esophagitis; Z79.899 Other long term (current) drug therapy

== ENCOUNTER → 2018-02-22 | Outpatient (CLI) | payer BC ==
[~2018-02-22] MED LIST changes: -CLON1TAB3 PO; +CLON1TAB4 PO; -OXYC-57 PO
[2018-02-25 06:28] LABS: MICROSOMAL AB <1 IU/ML (<9)
== END | disposition home or self-care (01) ==
LOC: C.LAB1850 16:10
PROVIDERS: ATTEND Physician Assistant
DX: R94.6 Abnormal results of thyroid function studies (principal)